=== PATIENT | female | born 2000 | race Caucasian/White ===

== ENCOUNTER 2018-07-21 16:30 | Outpatient (RCR) | payer SELFPAY | END 2018-07-21 19:00 | disposition home or self-care (01) | LOC: PT 16:30 | DX: S43.002D Unspecified subluxation of left shoulder joint, subsequent encounter (principal); S46.812D Strain of other muscles, fascia and tendons at shoulder and upper arm level, left arm, subsequent encounter | CPT/HCPCS: 97014; 97110; G0283 ==

== ENCOUNTER 2018-12-17 08:30 | Outpatient (RCR) | payer BC, OTHER, SELFPAY ==
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
--- NOTE | 2018-09-21 16:05 | HP.PTREVAL ---
JOSESITO MARTIN, It has been my pleasure to treat AYSHA BUSTOS over the last 9 visits for Shoulder Surgery 07/27/18- see script for full surgery information. Please see the progress note below for an update on the physical therapy plan of care! Subjective: Checked in with the surgeon office- didn't sleep in the sling- plans to move back to her dorm this weekend. Pain in the arm at the worst is a 4/10 but its enough that its screaming at me. Is trying to use it more- When she is in the Wellness she is taking her sling off but she still wears it outside. Plans to get out of the sling in the next 2 weeks. Heads home October 16 and flys back October 29- is having Magnesium IV's when she gets home for pain levels. Objective/Function: Posture: FH, RS- still wearing sling- guards the left UE. Palpation: tender along bicipital groove. AROM Flexion: 100 degrees with compensation, Abd: 95 degrees with compensation, ER: 35 degrees, IR: thumb to lateral pocket. Strength: isometric: 3+/5 very guarded. Encouraged to continue HEP (pulleys, mirror wash, cane exercises and pendulums) Plan Plan: Cont with POC Goals Goal 1:: Patient will be I with HEP and progression Goal Time Frame: 4-6 Weeks Goal 2:: Patient will progress through protocol to full ROM of the left shoulder Goal Time Frame: 4-6 Weeks Goal 3:: Patient will progress through protocol to 5/5 strength of the left shoulder/elbow Goal Time Frame: 4-6 Weeks Goal 4:: Patient will return to all normal ADL's for 1 week Goal Time Frame: 4-6 Weeks Anticipated Interventions Patient/Client Instruction: Educate patient on: Benefits of Fitness Program Therapeutic Exercise to Include: Strength training, Endurance training, Coordination, Body mechanics, Postural training, Passive ROM, Active ROM, Scapular Strength/Stabilization For the Purpose of:: To improve muscle performance and motor function TENS: Yes Cryotherapy (ice pack, ice massage): Yes Thermo therapy (hot pack): Yes Ultrasound (thermal/non thermal): No For the Purpose of:: To decrease pain Please do not hesitate to contact me at [phone] by phone or if you have questions or concerns regarding this new plan of care! Sincerely, Luba Gonzalez, LEONORT
--- NOTE | 2018-10-14 15:42 | HP.PTREVAL_ITS ---
JOSESITO MARTIN, It has been my pleasure to treat AYSHA BUSTOS over the last 16 visits for Shoulder Surgery 07/27/18- see script for full surgery information. Please see the progress note below for an update on the physical therapy plan of care! Subjective: Patient reports that the shoulder is a little sore and achy but no painful. Feels the shoulder is slowly getting better. Leaves to go home on Thursday and sees the surgeon on Thursday and will have PT and other modalities at home. Feels the shoulder is 50% back to normal. Patient reports that she can suds her hair in the shower but not for long periods of time. Reaching across body is uncomfortable. Still accomodates her shirt putting that arm in first but she is able to do her pants up/down easily. She is almost able to lie flat- uses a small pillow to prop it on. Can sleep on her right side and hug a stuffed animal for comfort. Does not wake her up or stop her from sleeping. The worst pain has been a 2-3/10 usually after pushing it in PT- Picky to go overhead. Patient can be painfree. Is painfree 19/24 hours a day. Objective/Function: Posture: good throughout. Gait: good arm swing and trunk rotation. AROM: Elbow flexion: 140 degrees, Shoulder flexion: 120 degrees , Abduction: 80 degrees, IR: Thumb to L1 behind the back, ER: 40 degrees PROM- (difficult to relax): flexion: 130 degrees, Abd: 110 degrees. Strength- Isometrics with dynamometer in lbs of force: Shoulder flexion: 14.6, 16.3, 18.6 abduction: 6.5, 6.6, 6.5 adduction: 13.6, 10.1, 10.8 IR: 9.2, 9.0, 8.7 ER: 7.2, 6.8, 7.8 extn: 11.5, 13.7, 10.9 Plan Plan: Continue with POC 2-3x a week for 4 weeks Goals Goal 1:: Patient will be I with HEP and progression Goal Time Frame: 4-6 Weeks Goal 2:: Patient will progress through protocol to full ROM of the left shoulder Goal Time Frame: 4-6 Weeks Goal 3:: Patient will progress through protocol to 5/5 strength of the left shoulder/elbow Goal Time Frame: 4-6 Weeks Goal 4:: Patient will return to all normal ADL's for 1 week Goal Time Frame: 4-6 Weeks Anticipated Interventions Patient/Client Instruction: Educate patient on: Benefits of Fitness Program Therapeutic Exercise to Include: Strength training, Endurance training, Coordination, Body mechanics, Postural training, Passive ROM, Active ROM, Scapular Strength/Stabilization For the Purpose of:: To improve muscle performance and motor function TENS: Yes Cryotherapy (ice pack, ice massage): Yes Thermo therapy (hot pack): Yes Ultrasound (thermal/non thermal): No For the Purpose of:: To decrease pain Please do not hesitate to contact me at [phone] by phone or if you have questions or concerns regarding this new plan of care! Sincerely, Luba Gonzalez DPT
--- NOTE | 2018-12-17 08:55 | HP.PTDCSUM ---
HP - PT D/C Summary It has been my pleasure to treat AYSHA BUSTOS under orders from JOSESITO MARTIN, for the diagnosis of Shoulder Surgery 07/27/18- see script for full surgery information for a total of 36 visit(s). Discharge Date: Please see the following information for a summary of their discharge status. - Subjective Subjective: Mary reports that she is doing great- she has some pain with movement but most of the time its pain free. She feels that she is 90-95% back to normal with the exception of Martial Arts. - Pain Left Shoulder Pain Intensity (Out of 10): 1 - Overall Improvement % Improvement: 95 - Objective Objective/Function: ROM: AAROM with pulleys: full in all planes. AROM: full in all planes with mild compensation in Abduction and Flexion. Incision healing well. Strength tested with dynamometer in neutral: Flexion: 13.5, 17.1, 16.8, Abduction: 24.0, 22.0, 18.9, Adduction: 17.2, 17.4, 18.1, IR: 18.4, 15.5, 14.7, ER: 9.2, 9.4, 9.1- measure in lbs of force. Scap strength/stabilization is fair- decreased winging. - Goals Goal 1:: Patient will be I with HEP and progression Goal Progress: Goal Met Goal 2:: Patient will progress through protocol to full ROM of the left shoulder Goal Progress: Goal Met Goal 3:: Patient will progress through protocol to 5/5 strength of the left shoulder/elbow Goal Progress: Progressing Goal 4:: Patient will return to all normal ADL's for 1 week Goal Progress: Goal Met - Plan Plan: continue physical therapy in [place] and return to [place] for follow up. - D/C Information If there are questions or concerns regarding this patient's physical therapy, please feel free to call me at [phone]. Thank you for the referral of this patient. Sincerely, Luba Gonzalez DPT
== END 2018-12-17 09:32 | disposition home or self-care (01) ==
LOC: PT 08:30
DX: M25.312 Other instability, left shoulder (principal); M75.22 Bicipital tendinitis, left shoulder
CPT/HCPCS: 97110; 97140; 97162; 97164

== ENCOUNTER 2019-07-05 08:30 | Outpatient (RCR) | payer OTHER, SELFPAY ==
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
--- NOTE | 2019-07-05 13:58 | HP.PTDCSUM ---
HP - PT D/C Summary It has been my pleasure to treat AYSHA BUSTOS under orders from SCOTT HONEYCUTT, for the diagnosis of Left Shoulder Pain for a total of 9 visit(s). Discharge Date: 07/05/19 Please see the following information for a summary of their discharge status. - Subjective Subjective: Pt. reports no issues with her shoulder. She does have slight stiffness at times, but no pain. Pt. has some incisional sensitivity at times as well. - Overall Improvement % Improvement: 95 - Objective Objective/Function: Pt. has full ROM with no pain, no pain with over pressures. pt. reports tightness feeling with end range stretching, but full ROM. Pt. has 5/5 strength throughout L shoulder, but does have 5-/5 strength of her scapular musculature including rhomboids and lower trap. - Goals Goal 1:: Patient will be I with HEP and progression with a gym program Goal Progress: Goal Met Goal 2:: Patient will lift a 30# box from floor to overhead x5 with no pain or compensation patterns to simulate saddling a horse Goal Progress: Goal Met Goal 3:: Patient will be able to hold a #5 weight in 90 degrees of abduction for 2 minutes with good stability to simulate bow position Goal Progress: Goal Met Goal 4:: Patient will demonstrate ability to manipulate Body Blade (sup/pro) for 1 minutes with 0/10 pain in the biceps to simulate BowStaff movement Goal Progress: Goal Met Goal 5:: Patient will demo 10 push ups on her toes with 0/10 pain and good form. (stanidng push ups, due to wrist pain) Goal Progress: Progressing - Plan Plan: Pt. to be DC to HEP at this point in time. - D/C Information Discharge Comments: Pt. tolerated all PT without adverse reaction. Pt. has full ROM and good strength. Pt. will be DC from PT at this point in time. If there are questions or concerns regarding this patient's physical therapy, please feel free to call me at [phone]. Thank you for the referral of this patient. Sincerely, Jake Quarles DPT
== END 2019-07-05 14:19 | disposition home or self-care (01) ==
LOC: PT 08:30
DX: M25.512 Pain in left shoulder (principal)
CPT/HCPCS: 97110; 97161; 97530

== ENCOUNTER 2019-09-30 08:00 | Outpatient (RCR) | payer OTHER, SELFPAY ==
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
--- NOTE | 2019-12-06 09:34 | HP.PT.NRP ---
AYSHA BUSTOS was seen in my office for initial evaluation on 08/26/19. The following Plan of Care was established for this patient: Initial Frequency: Monthly Initial Duration: 2-4 Months Patient/Client Instruction: Educate patient on: Condition, Plan of Care For the Purpose of:: To improve self management Therapeutic Exercise to Include: Strength training, Endurance training, Scapular Strength/Stabilization For the Purpose of:: To decrease pain, To improve muscle performance and motor function This patient was last seen in our office . Pertinent comments regarding their Physical therapy will appear below: Pt was treated for R shoulder pain through the date of 09/30/2019. Pt stopped coming at that time secondary to the covid-19 and has no plans to continue as she lives out torrance. Pt is discontinued at this time. At this point I will be discontinuing this patient from physical therapy. I would be happy to see this patient again in the future if found appropriate by the physician. Thank you! Long Felix, PT, ATC
== END 2019-09-30 19:00 | disposition home or self-care (01) ==
LOC: PT 08:00
DX: M25.512 Pain in left shoulder (principal)
CPT/HCPCS: 97110; 97161